=== PATIENT | male | born 1980 | race Caucasian/White ===

== ENCOUNTER 2024-06-10 07:22 | Day surgery (SDC) | payer BC ==
[2024-06-08 15:45] VITALS: BMI 29.8
[2024-06-10] MEDS: IV FLUID CONTINUATION 1,000 ML IV ONE (07:41)
--- NOTE | 2024-06-10 07:44 | P.GSHP ---
History of Present Illness H&P Date: 06/10/24 CHIEF COMPLAINT: GERD and change in bowel habits HISTORY OF PRESENT ILLNESS: The patient is a 43-year-old male who presents with gastroesophageal reflux disease with dysphagia and change in bowel habits. Upper and lower endoscopy were offered for further evaluation and management. PAST MEDICAL HISTORY: Please see list. PAST SURGICAL HISTORY: Please see list. MEDICATIONS: Please see list. ALLERGIES: Please see list. SOCIAL HISTORY: No illicit drug use FAMILY HISTORY: No reports of Crohn disease or ulcerative colitis. REVIEW OF ORGAN SYSTEMS: CONSTITUTIONAL: No reports of fevers or chills. PHYSICAL EXAM: VITAL SIGNS: Stable GENERAL: Well-developed pleasant in no acute distress. HEENT: No scleral icterus. Extraocular movements grossly intact. Moist buccal mucosa. NECK: Supple without lymphadenopathy. CHEST: Unlabored respirations. Equal bilateral excursions. CARDIOVASCULAR: Regular rate and rhythm. Distal 2+ pulses. ABDOMEN: Soft, nondistended. MUSCULOSKELETAL: No clubbing, cyanosis, or edema. ASSESSMENT: 1. Gastroesophageal reflux disease with dysphagia 2. Change in bowel habits PLAN: 1. Recommend proceeding with an upper and lower endoscopy Past Medical History Additional Past Medical History / Comment(s): Hx. of Hypertrophic Cardiomyopathy. History of Any Multi-Drug Resistant Organisms: None Reported Additional Past Surgical History / Comment(s): open heart surgery. Pilonidal Cyst, R ankle surgery. Past Anesthesia/Blood Transfusion Reactions: Postoperative Nausea & Vomiting (PONV) Smoking Status: Never smoker - Past Family History Mother Family Medical History: No Reported History Medications and Allergies Home Medications Medication Instructions Recorded Confirmed Type Metoprolol Succinate [Metoprolol 25 mg PO HS 06/08/24 06/08/24 History Succinate ER] Sertraline [Zoloft] 25 mg PO HS 06/08/24 06/08/24 History Allergies Allergy/AdvReac Type Severity Reaction Status Date / Time No Known Allergies Allergy Verified 06/08/24 15:01
[2024-06-10] MEDS: LACTATED RINGERS 1,000 ML IV SCH (07:48)
[2024-06-10 07:49] VITALS: TEMP 97.1
[2024-06-10] MEDS ORDERED: LIDOCAINE 2% (PF) 20 MG/ML 5 ML VIAL ONE (08:14)
[2024-06-10] MEDS ORDERED: PROPOFOL 10 MG/ML 20 ML VIAL IV ONE (08:14)
--- NOTE | 2024-06-10 09:06 | P.PCN ---
Date of Procedure: 06/10/24 Description of Procedure: PREOPERATIVE DIAGNOSIS: Gastrointestinal bleeding POSTOPERATIVE DIAGNOSIS: Acute gastritis with bleeding Diaphragmatic hiatal hernia Gastroesophageal reflux disease with erosive esophagitis OPERATION: Esophagogastroduodenoscopy with cold forceps biopsies along esophagus, antrum and duodenum SURGEON: Trinity Castro MD ANESTHESIA: MAC. INDICATIONS: The patient is a 43-year-old male who presents with gastrointestinal bleeding. Benefits and risks of the procedure were described. Informed consent was obtained. DESCRIPTION: The patient was brought into the endoscopy suite and laid in the left lateral decubitus position. An Olympus gastroscope was passed along the posterior oropharynx down to the distal esophagus where the squamocolumnar junction was encountered at 38 cm from the incisors. The stomach was entered and bile reflux was found. Additional findings are listed below. Biopsies with cold forceps were obtained of the antrum. The first through third portion of the duodenum was examined. Retroflexion of the scope confirmed Hill grade 3 lower esophageal ego ve. The squamocolumnar junction demonstrated LA grade C erosive esophagitis. The stomach was desufflated. The patient tolerated the procedure well. FINDINGS: Squamocolumnar junction 38 cm from the incisors. Diaphragmatic hiatus at 40 cm. Hiatal hernia, 2 cm, sliding-type Hill grade 3 lower esophageal valve. LA grade C erosive esophagitis. Biopsies obtained. Biopsies obtained of the duodenum. Chronic gastritis with biopsies obtained. Acute gastritis along gastric cardia with bleeding RECOMMENDATIONS: Start omeprazole 40 mg daily for 2-week to 4 weeks Additional CC's: Tim Robles
[2024-06-10 09:11] VITALS: BP 112/73; PULSE 65; RESP 14
--- NOTE | 2024-06-10 09:16 | P.PCN ---
Date of Procedure: 06/10/24 Description of Procedure: PREOPERATIVE DIAGNOSIS: Gastrointestinal bleeding Family history esophageal cancer, dad POSTOPERATIVE DIAGNOSIS: Microscopic colitis OPERATION: Colonoscopy to the cecum, ileocecal valve and appendiceal orifice. Colonoscopy with random cold forceps biopsies for microscopic colitis SURGEON: Trinity Castro MD. ANESTHESIA: MAC. INDICATIONS: The patient is a 43-year-old male who presents with altered stools including change in bowel habits. Benefits and risks were described and informed consent was obtained. DESCRIPTION OF PROCEDURE: The patient had undergone Suprep. The patient had been brought into the operating room and laid in the left lateral decubitus position. After adequate intravenous sedation, the rectum was examined with 2% lidocaine jelly. No external hemorrhoids were encountered. The rectal tone was within normal limits. No lesions were palpated in the rectal vault. An Olympus colonoscope was advanced until the cecum, ileocecal valve and appendiceal orifice were clearly viewed. The prep was excellent. No scattered diverticulosis was encountered. No colonic polyps were found. Cold forceps biopsies randomly were obtained for microscopic colitis. Retroflexion of the scope demonstrated grade 1 internal hemorrhoids without active bleeding or inflammation. The colon was desufflated. The patient had tolerated the procedure well. Withdrawal time was over 6 minutes. FINDINGS: Aronchick preparation quality scale 1 (1-5) Internal hemorrhoids, grade 1 No external prolapsed hemorrhoids. No arteriovenous malformations. No adenomatous polyps. Cold forceps biopsies obtained for microscopic colitis RECOMMENDATIONS: Lower endoscopy as needed Plan - Discharge Summary Discharge Rx Participant: No New Discharge Prescriptions: New Omeprazole [PriLOSEC] 40 mg PO DAILY #14 cap Continue Sertraline [Zoloft] 25 mg PO HS Metoprolol Succinate [Metoprolol Succinate ER] 25 mg PO HS Discharge Medication List Metoprolol Succinate [Metoprolol Succinate ER] 25 mg PO HS 06/08/24 [History] Sertraline [Zoloft] 25 mg PO HS 06/08/24 [History] Omeprazole [PriLOSEC] 40 mg PO DAILY #14 cap 06/10/24 [Rx] Follow up Appointment(s)/Referral(s): Trinity Castro MD [STAFF PHYSICIAN] - 07/13/24 2:30 pm Patient Instructions/Handouts: *Surgery [facility] - (Anesthesia) Discharge Instructio ns Outpatient Surgery, Hiatal Hernia (DC) Activity/Diet/Wound Care/Special Instructions: Repeat colonoscopy age 47 Discharge Disposition: HOME SELF-CARE
== END 2024-06-10 09:33 | disposition home or self-care (01) ==
LOC: ORWHC2ENDO 07:22
PROVIDERS: ATTEND Surgery Plastic and Reconstructive Surgery
DX: K64.0 First degree hemorrhoids (principal); K29.01 Acute gastritis with bleeding; K29.51 Unspecified chronic gastritis with bleeding; K21.00 Gastro-esophageal reflux disease with esophagitis, without bleeding; K44.9 Diaphragmatic hernia without obstruction or gangrene; I10 Essential (primary) hypertension; I42.2 Other hypertrophic cardiomyopathy; F32.A Depression, unspecified; Z91.89 Other specified personal risk factors, not elsewhere classified; Z80.0 Family history of malignant neoplasm of digestive organs; Z79.899 Other long term (current) drug therapy
CPT/HCPCS: 88305; 45380; 43239; J2704; J2003